=== PATIENT | female | born 1960 | race African-American/Black ===

== ENCOUNTER → 2016-08-25 | Outpatient (CLI) | payer OTHER ==
[~2016-08-25] MED LIST: ALTACE10 M2 PO; ALTACE10 MG PO; AMLODIPINE BESY10 MG PO; HYDROCODON-ACE1 EAC4 PO; HYDROCODON-ACE1 EACH PO; KLOR-CON PO; MOBIC PO; PANTOPRAZOLE SO40 MG PO; PRAVASTATIN SOD20 MG PO; TRIAMTERENE-HCT1 TA6 PO; VITAMIN D5000 UNIT PO; VOLTAREN75 MG PO
--- NOTE | ~2016-08-25 | US128 ---
[id number] [facility]. [facility] [address] [place], [place] [address] [id number] O MR#: [id number] Acc #: [id number] NAME: EUGENE DAVIS : 1960 SEX: F STUDY DATE/TIME: 08/25/2016 16:58 UNIT: CGUS ROOM: STUDY DESCRIPTION: Thyroid Attending Physician: Amadeo Washburn M.D. Referring Physician: Amadeo Washburn M.D. Ordering Physician: Amadeo Washburn M.D. Primary Care Physician: Pritesh Allen.P.RJac MEDICAL IMAGING REPORT This report is preliminary unless electronic signature is present EXAM Thyroid ultrasound 08/25/2016 HISTORY Known thyroid nodules. Routine follow up, no new symptoms. COMPARISON 12/04/2015. FINDINGS Stable solid nodules in the right lobe and left lobe of the gland are seen. The dominant lesion on the right which previously measured 1.6 x 1.1 x 0.9 cm is currently measured at about 8 x 9 x 10 mm. It may be a slight under estimate, but in any event it clearly has not grown in the interval. It is almost certainly closer to 13 mm in maximal craniocaudal dimension currently. No new right lobe lesions are seen. On the left, there is a hypoechoic dominant nodule about 8 x 6 x 9 mm, previously measured at about 7 x 9 x 11 mm clearly stable. The technologist has measured what appears to be a pseudo nodule and has measured it at up to 13 mm in maximal dimension, but I do not believe that this represents a discrete nodule. IMPRESSION Stable thyroid nodules. In addition, the technologist has measured a region on the left suggesting it represents a new nodule but I believe the appearance is much more consistent with a pseudo nodule. No new abnormality, stable exam. Dictated by... Scout Kimble M.D. THIS IS AN ELECTRONICALLY VERIFIED REPORT Scout Kimble M.D. at 08/27/2016 5:05 PM SIOMARA/juan jose TD: 08/26/2016 10:42 JOB #: [id number] MEDICAL IMAGING REPORT Page 1 of 1 COPY
== END | disposition home or self-care (01) ==
LOC: CGUS 16:42
DX: E04.2 Nontoxic multinodular goiter (principal)
CPT/HCPCS: 76536